=== PATIENT | male | born 1960 | race Caucasian/White ===

== ENCOUNTER 2019-10-01 16:04 | Emergency (ER) | payer BC ==
[~2019-10-01] VITALS: Ht 175.3 cm; Wt 94.0 kg
--- NOTE | 2019-10-01 17:36 | NUR ---
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 RUBI
--- NOTE | 2019-10-01 17:41 | NUR ---
US AND LABS AT BEDSIDE
[2019-10-01 17:53] VITALS: BP 148/102
[2019-10-01 17:55] LABS: BASOPHILS # (AUTO) 0.04 x10^3/uL (0-0.1); BASOPHILS % (AUTO) 1 % (0-1); EOSINOPHILS # (AUTO) 0.28 x10^3/uL (0-0.4); EOSINOPHILS % (AUTO) 4 % (1-7); LYMPHOCYTES # (AUTO) 2.04 x10^3/uL (1-3.4); LYMPHOCYTES % (AUTO) 30 % (22-44); MD NO; MEAN CORPUSCULAR HEMOGLOBIN 33.3 pg (27.5-34.5); MEAN CORPUSCULAR VOLUME 97.9 fL (81-97); MEAN PLATELET VOLUME 7.3 fL (7.4-10.4); MONOCYTES # (AUTO) 0.75 x10^3/uL (0.2-0.8); MONOCYTES % (AUTO) 11 % (2-9); NEUTROPHILS # (AUTO) 3.72 x10^3/uL (1.8-6.8); NEUTROPHILS % (AUTO) 55 % (42-75); PLATELET COUNT 244 x10^3/uL (130-400); RED BLOOD COUNT 4.87 x10^6/uL (4.38-5.82)
--- NOTE | 2019-10-01 17:59 | NUR ---
PT PRESENTING TO ER FOR N/V X2 WKS, RIGHT UPPER ABD PAIN RADIATING TO EPIGASTRIC ARREA X4 DAYS AND BLOOD IN URINE. PIT ORDERS RECEIVED AND IN PROGRESS. CONNECTED TO MONITORING, HTN NOTED OTHER VS WNL. US STILL IN PROGRESS. CALL LIGHT WITHIN REACH. AWAITING RESULTS AND FURTHER INSTRUCTIONS AT THIS TIME
[2019-10-01 18:07] LABS: ALANINE AMINOTRANSFERASE 964 U/L (12-78); ALBUMIN 3.8 g/dL (3.4-5.0); ANION GAP 3 mmol/L (5-15); CALCIUM 8.9 mg/dL (8.5-10.1); CHLORIDE 109 mmol/L (98-107); CREATININE 1.17 mg/dL (0.7-1.3)
--- NOTE | 2019-10-01 18:08 | NUR ---
AT BEDSIDE FOR ASSESSMENT. AWAITING FURTHER ORDERS AT [facility] TIME
[2019-10-01 18:09] LABS: ALKALINE PHOSPHATASE 93 U/L (45-117); BILIRUBIN,TOTAL 0.6 mg/dL (0.2-1.0); TOTAL PROTEIN 7.4 g/dL (6.4-8.2)
--- NOTE | 2019-10-01 18:18 | NUR ---
PT GIVEN CUP FOR UA, INSTRUCTIONS ON PROPER COLLECTION GIVEN.
--- NOTE | 2019-10-01 18:25 | NUR ---
UA COLLECTED AND SENT TO LAB
[2019-10-01 18:33] LABS: MICROSCOPIC NOT IND
[2019-10-01 18:38] LABS: CULTURE INDICATED? NO
--- NOTE | 2019-10-01 18:46 | NUR ---
REPORT REC, AWAIT FURTHER ORDERS.
== END 2019-10-01 19:17 | disposition home or self-care (01) ==
LOC: ED 18:16
DX: K80.20 Calculus of gallbladder without cholecystitis without obstruction (principal); R74.8 Abnormal levels of other serum enzymes; R11.2 Nausea with vomiting, unspecified; R19.7 Diarrhea, unspecified; R10.9 Unspecified abdominal pain
CPT/HCPCS: 36415; 76700; 80053; 81003; 83690; 85025; 99284